=== PATIENT | male | born 1970 | race African-American/Black ===

== ENCOUNTER 2019-02-17 00:30 | Emergency (ER) | payer SELFPAY ==
[2019-02-17 00:37] VITALS: BMI 31.0
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
[2019-02-17 07:38] VITALS: BP 159/90; PULSE 79; TEMP 97.7
--- NOTE | 2019-02-17 10:11 | EKG ---
Test Reason : Blood Pressure : / mmHG Vent. Rate : 076 BPM Atrial Rate : 076 BPM P-R Int : 152 ms QRS Dur : 084 ms QT Int : 404 ms P-R-T Axes : 066 037 040 degrees QTc Int : 454 ms POOR DATA QUALITY, INTERPRETATION MAY BE ADVERSELY AFFECTED NORMAL SINUS RHYTHM NORMAL ECG NO PREVIOUS ECGS AVAILABLE Confirmed by UCHE HACKETT, CARLOS ([id number]) on 02/17/2019 10:11:29 AM Referred By: Confirmed By:CARLOS IVEY MD
== END 2019-02-17 07:25 | disposition home or self-care (01) ==
LOC: JER 00:30
DX: M79.10 Myalgia, unspecified site (principal); F17.210 Nicotine dependence, cigarettes, uncomplicated; W50.0XXA Accidental hit or strike by another person, initial encounter; Y93.89 Activity, other specified; Y92.89 Other specified places as the place of occurrence of the external cause
CPT/HCPCS: 93005; 93010; 99282-25